=== PATIENT | male | born 1950 | race Caucasian/White ===

== ENCOUNTER 2022-12-07 10:40 | Outpatient (RCR) | payer MEDICARE, SELFPAY ==
--- NOTE | 2022-12-07 17:33 | PT.OPEX ---
PT [place] Outpatient Eval PT [facility] Outpatient Eval Start: 12/07/22 11:53 Freq: Status: Active Protocol: Document 12/07/22 16:53 ANYA (Rec: 12/07/22 17:27 ANYA [id number]) E-signed By Deirdre Escobedo DPT Physical Therapy Outpatient Evaluation Insurance Information Recert Due Date 03/07/23 Insurance Name Medicare B,are Medical Diagnosis L hip OA L BELEN 12/15/22 Treating Diagnosis L hip pain, impaired L hip ROM /mobility, core/hip/glut/LE weakness, limping/antalgic gait, limited tolerance for extended standing/walking, difficulty with stairs Subjective Subjective Patient reports chronic L hip pain progressively getting worse and leading up to L BELEN 12/15/22. He reports using a SPC for amb up until about 1 1 /2 months ago when he needed to start using a 4ww due to increased L hip pain. L hip pain rated 8-9/10 with movement/activity/walking. Reports he is using pain meds more often the last month, taking tylenol regularly. Sleep is interrupted. States he had lumbar spinal fusion in Jun 2022. Patient reports spouse will be able to assist him at home after surgery. He has SPC, FWW, and 4ww to use after surgery as needed. Standing/walking activities have been limited by pain. He is doing step to pattern for stair negotiation. Patient had R/L TKAs 5+ years ago. Date of Last Physician Visit 11/03/22 Date of Surgery (If applicable) 12/15/22 Current Work Status Retired Precautions Treatment Precautions/Contraindications hx R/L TKAs, lumbar spinal fusion Jun 2022 Assessment Assessment/Impression Patient is a 72 year old male with L hip pain, impaired L hip ROM/mobility, core/hip/ glut/LE weakness, limping/ antalgic gait, limited tolerance for extended standing/walking, difficulty with stairs. Pain rated 8-9/ 10. Patient seen in PT today for pre-op session to provide education/information on upcoming BELEN surgery, safety information/HO, equipment instruction including use of FWW/4ww, and instruction in BELEN exercises. Handouts issued for exercises, patient to perform them leading up to surgery. Reviewed PT/OT plan during hospital stay and patient is scheduled for OP PT post op. Patient would benefit from skilled PT for pain/sx management, improved hip ROM, improved hip/LE mobility/strength, improved gait, balance/proprioception training, and establishment of HEP. Plan of Care Rehabilitation Potential Good Physical Therapy Goals 1. Patient will be educated in BELEN pre/post-op safety, mobility, and exercises with HOs provided within one visit with patient returning to PT for post op treatment after L BELEN surgery on 12/15/21. PT goals will be updated to BELEN rehab goals when patient returns post op. Coordination/Communication With Referral Source Treatment Plan/Direct Interventions Gait Training,Manual Therapy, Therapeutic Exercises Frequency/Duration 1x/week Patient Will Be Discharged From Therapy Completion of LTG(s),Skills Plateau,Independent w/HEP, Independently Progressing Evaluation Billing Untimed Code Treatment Minutes 30 Complexity Moderate Certification Information Initial Certification Date 12/07/22 Ending Certification Date 03/07/23 Provider Signature Shows Agreement With POC & Medical Necessity Physician Signature & Date Requested Please Sign/Date Here Physician Comment/Change : Physician NPI Number #
== END 2023-04-06 23:59 | disposition home or self-care (01) ==
PROVIDERS: PCP Orthopaedic Surgery; Visit Provider Orthopaedic Surgery
DX: M16.12 Unilateral primary osteoarthritis, left hip (principal); Z96.642 Presence of left artificial hip joint; R26.89 Other abnormalities of gait and mobility; Z51.89 Encounter for other specified aftercare; M25.552 Pain in left hip; M62.81 Muscle weakness (generalized)
CPT/HCPCS: 97162

== ENCOUNTER 2022-12-13 10:24 | Outpatient (CLI) | payer MEDICARE, SELFPAY | END 2022-12-13 10:25 | disposition home or self-care (01) | PROVIDERS: PCP Family Medicine; Visit Provider Orthopaedic Surgery | DX: Z01.818 Encounter for other preprocedural examination (principal) | CPT/HCPCS: 36415; 86850; 86900; 86901 ==

== ENCOUNTER 2022-12-15 07:43 | Day surgery (SDC) | payer MEDICARE, SELFPAY ==
[2022-12-15] VITALS (35 sets, daily range): BP systolic 86–150; BP diastolic 19–79; PULSE 79–97; RESP 11–20; TEMP 35.6–36.5; O2SAT 92–100; BMI 40.5
[2022-12-15] MEDS: CELECOXIB 200 MG CAPSULE PO (08:01)
[2022-12-15] MEDS: ACETAMINOPHEN 500 MG TABLET 1000 MG PO ×3 (08:01→22:01)
[2022-12-15] MEDS: OXYCODONE (CR) 10 MG TAB.ER.12H PO (08:02)
[2022-12-15] MEDS: LACTATED RINGERS 1000 ML 1,000 ML 100 ML IV ×2 (08:30→10:36)
[2022-12-15] MEDS: SODIUM CHLORIDE 0.9 % (FLUSH) 10 ML SYRINGE IVF (08:30)
--- NOTE | 2022-12-15 08:41 | SUR.PREOP ---
TIME?OUT:?0842 PT/RN/MDA?VERIFICATION?OF?SURGICAL?SITE,?PROCEDURE,?AND?CONSENT OBTAINED?PRIOR?TO?INVASIVE?PROCEDURE.
[2022-12-15] MEDS: fentaNYL 100 MCG/2 ML inj IVP (08:42)
[2022-12-15] MEDS: MIDAZOLAM HCL 1 MG/ML inj IVP (08:42)
[2022-12-15] MEDS: CEFAZOLIN 2 GM INJ IVP (09:15)
--- NOTE | 2022-12-15 09:19 | P.NB_ITS ---
Nerve Block Nerve Block Time Seen by Provider: 08:47 Date Seen: 12/15/22 Type of block requested by surgeon for post-operative analgesia: MAT/LFCN Side: left Time out performed: Yes Verification of patient name: Yes Verification of date of : Yes Site marking: site marked Name of person performing procedure: Kane Continuous monitoring Was continuous monitoring of O2 sat, B/P, awake overnight monitor, recorded every 15 minutes?: Yes Procedure Checklist: sterile prep, needles and gloves Ultrasound guided. Images saved: Yes Medications given in 5ml increments after negative aspiration: Ropivicaine %: 0.5 mL: 30 Needle gauge: 20 Decadron (mg): 10 Precedex (mcg): 25 Patient tolerated procedure well: Yes Additional comments: Needle noted below psoas tendon needle noted adjacent to LFCN Block Charges Block Charge (with Pro Fee): Other Periph Nerve Block Use of Ultrasound Machine for Block: Yes- US Guidance/pain block
--- NOTE | 2022-12-15 09:19 | W.ANESCHARGE ---
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
[2022-12-15] MEDS: TRANEXAMIC ACID 100 MG/ML INJ 1000 MG IV (09:20)
--- NOTE | 2022-12-15 09:30 | CRLHL7_ITS ---
For Patients: As a result of the Cures Act, medical imaging exams and procedure reports are released immediately into your electronic medical record. You may view this report before your referring provider. If you have questions, please contact your health care provider. Indication: Hip replacement surgery Technique: AP hip fluoroscopic images. Fluoroscopy time 59.7 seconds. Findings/Impression: Hardware from a left total hip arthroplasty is in satisfactory position. Dictated by Jaziel Figueroa MD @ 12/15/2022 12:25:03 PM (Electronically Signed)
--- NOTE | 2022-12-15 10:53 | CRLHL7_ITS ---
For Patients: As a result of the Cures Act, medical imaging exams and procedure reports are released immediately into your electronic medical record. You may view this report before your referring provider. If you have questions, please contact your health care provider. Indication: Postop Technique: AP hip centered pelvis and lateral view left hip Findings/Impression: Hardware from a left total hip arthroplasty is in satisfactory position. Bone alignment is normal. No sign of acute fracture. Postop changes are within normal limits. Dictated by Jaziel Figueroa MD @ 12/15/2022 12:23:08 PM (Electronically Signed)
--- NOTE | 2022-12-15 10:55 | P.ORPRC_ITS ---
Procedure Note Date of procedure: 12/15/22 Procedure: PREOPERATIVE DIAGNOSIS: Left hip osteoarthritis POSTOPERATIVE DIAGNOSIS: Left hip osteoarthritis NAME OF OPERATION: Left total hip arthroplasty SURGEON: Nadir Islas MD [employer] INSURANCE: Angela Correia PA-C, [employer] IMPLANTS: 1. [employer] [place] # 56 sector ingrowth cup 2. 36 x 56 +4 neutral polyethylene 3. Actis # 9 high offset collared ingrowth stem 4. 36 + 5 ceramic femoral head ANESTHESIA: General ESTIMATED BLOOD LOSS: 750 cc COMPLICATIONS: None SPECIMENS: None DRAINS: None PREOPERATIVE ANTIBIOTICS: Ancef 3 grams INDICATIONS: The patient is a 72-year-old with a longstanding history of severe, unrelenting left hip pain secondary to end-stage left hip osteoarthritis. Despite appropriate nonoperative management, including activity modification, use of an assist device, anti-inflammatories, [id number] pain medication, physical therapy and injections, they continue to have pain and disability. Operative intervention was offered. The risks, benefits and expected outcomes were discussed in detail. These included but were not limited to: Infection, bleeding, injury to blood vessel or nerve, venous thromboembolism. All questions were answered to their satisfaction. Use of an human resources assistant manager was necessary throughout the case for patient positioning and safety, soft tissue retraction and closure. PROCEDURE: The patient was placed supine on the [place] table. General anesthesia was administered. The human resources assistant manager made sure the patient was properly positioned. The left hip was prepped and draped in the usual sterile fashion. The image intensifier was brought in for a perfect AP pelvis and a perfect double tear drop AP view of each hip which were used for intraoperative templating with our fluoroscopic guide. An oblique incision was made 3 cm distal and 3 cm lateral to the anterior superior iliac spine. The human resources assistant manager retracted the soft tissues to protect them. Subcutaneous dissection was taken with electrocautery to the superficial fascia. The fascia was divided in line with the incision. Blunt dissection was carried medially to the tensor fascia lennox and sartorius interval. Deep dissection was carried with electrocautery. The circumflex vessels were cauterized and divided. The capsule was exposed and then divided in a T- fashion, tagged with #1 Ethibond sutures. Retractors were placed in the joint, held by the human resources assistant manager. The corkscrew was placed in the femoral head. The neck cut was made in the subcapital region. We made a second neck cut more distal. The napkin ring of bone was removed. The femoral head was removed intact. Acetabular retractors were placed, held by the human resources assistant manager. The labrum was sharply debrided. The capsule was released. The 43 mm reamer was used to the true medial wall. We then enlarged in 2 mm increments using the image intensifier for our reamer placement. We impacted the cup which had excellent purchase. We placed the hole eliminator and the polyethylene. Attention was then turned to the proximal femur. The limb was placed in 140 degrees of external rotation, maximum extension and adduction. A significant amount of time was spent releasing the capsule to allow us to deliver the femur into the wound and complete the femoral side safely. Retractors were held by the human resources assistant manager throughout the femoral preparation. The snuff box finisher and canal finder were used. Broaches were used to a stable size. The calcar reamer was used. Trial components were placed. The hip was reduced and was found to be stable with appropriate soft tissue tension. Length and offset had been nicely restored using the image intensifier and our fluoroscopic guide. Trial components were removed. The stem was impacted. We placed the femoral head. Again, the hip was reduced and was found to be stable with appropriate soft tissue tension. Length and offset had been nicely restored. The human resources assistant manager did a three minute dilute Betadine solution soak. The human resources assistant manager irrigated the wound with 3 liters of normal saline via pulse lavage. The ass istant repaired the anterior capsule with a #1 Vicryl and our previously placed Ethibond sutures. The human resources assistant manager closed the fascia over the tensor fascia lennox with a #1 PDO Stratafix, subcutaneous tissues with 2-0 Vicryl, skin with a running 3-0 Stratafix and glue. A dry dressing was applied by the human resources assistant manager. Sponge and needle counts were correct x 2. The patient tolerated the procedure well; there were no apparent complications. They were awakened and extubated in the operating room, sent to the Post-Anesthesia Care Unit in satisfactory condition. PLAN: 1. The patient will be mobilized with physical therapy, weight-bearing as tolerates 2. Given his history of a calf DVT after spinal fusion, Xarelto x 35 days will be used for DVT prophylaxis 3. The patient will be discharged once medically appropriate
[2022-12-15] MEDS: fentaNYL 100 MCG/2 ML inj 50 MCG IVP ×2 (11:52→12:08)
[2022-12-15] MEDS: HYDROmorphone 0.5 mg/0.5 ml inj IVP ×4 (12:20→15:18)
[2022-12-15] MEDS: LACTATED RINGERS 1000 ML 1,000 ML 35 ML IV (12:39)
[2022-12-15] MEDS: hydrOXYzine pamoate 25 MG CAPSULE PO (13:01)
--- NOTE | 2022-12-15 13:26 | SUR.PHASEI ---
patient met discharge criteria per anesthesia
--- NOTE | 2022-12-15 14:48 | PC.NURSE ---
End of Shift: Pt arrived to floor at 1320 post LTH. Pt reports pain at 7/10. Therapy worked with pt. LR IV ordered at 75ml/hr. No void or BM during shift. Pt ambulating with therapy SBA, walker, and gaitbelt. at bedside.
--- NOTE | 2022-12-15 14:58 | P.ANES_ITS ---
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
--- NOTE | 2022-12-15 15:42 | P.IMCN_ITS ---
Date of Consult Patient: Alexx Patient Consult date: 12/15/22 Requesting Physician: Orthopedics Primary Care Provider: Homer Champion MD Consult Narrative Reason for consult: recent DVT, HTN, DM2 Narrative: Jozef Saleem is a 72 year old male who has been on Xarelto for DVT for the past three months underwent an elective left total hip arthroplasty today by Dr. Islas. Trupti stopped Xarelto few days before surgery and had discussed the plan with his primary care provider prior to admission. They decided that he should restart Xarelto at a therapeutic dose after surgery and continue it for 1 month. He tells me that he has enough pills at home to do this. Also he has been on oral opioids as an outpatient for hip pain past few months. He was already asking for refill of his oxycodone to go home with because use concerned he will have quite a bit of pain. He tells me that his pain is already ramping up after surgery and he feels like he could use something for pain right now. His , Emeli, was in the room with him. Review of Systems Status of ROS: Reports: 10 or more systems reviewed and unremarkable except as noted in History and below [facility] Medical History (Updated 12/15/22 @ 16:12 by Ame Posada MD) Opioid use ?F11.90 - Opioid use, unspecified, uncomplicated (ICD-10) DVT (deep venous thrombosis) ?I82.409 - Acute embolism and thrombosis of unspecified deep veins of unspecified lower extremity (ICD-10) Lumbar spinal stenosis ?M48.061 - Spinal stenosis, lumbar region without neurogenic claudication (ICD-10) Depression ?F32.A - Depression, unspecified (ICD-10) Morbid obesity with BMI of 40.0-44.9, adult ?E66.01 - Morbid (severe) obesity due to excess calories (ICD-10) ?Z68.41 - Body mass index [BMI] 40.0-44.9, adult (ICD-10) Hypermetropia ?H52.00 - Hypermetropia, unspecified eye (ICD-10) Prostate cancer ?C61 - Malignant neoplasm of prostate (ICD-10) Type 2 diabetes mellitus without complications ?E11.9 - Type 2 diabetes mellitus without complications (ICD-10) GERD (gastroesophageal reflux disease) ?K21.9 - Gastro-esophageal reflux disease without esophagitis (ICD-10) Left rotator cuff tear ?M75.102 - Unspecified rotator cuff tear or rupture of left shoulder, not specified as traumatic (ICD-10) Left hip pain ?M25.552 - Pain in left hip (ICD-10) Anxiety ?F41.9 - Anxiety disorder, unspecified (ICD-10) Hypertension ?I10 - Essential (primary) hypertension (ICD-10) Surgical History (Updated 12/15/22 @ 16:12 by Ame Posada MD) S/P total hip arthroplasty (12/15/22) ?Z96.649 - Presence of unspecified artificial hip joint (ICD-10) History of refractive surgery ?Z98.890 - Other specified postprocedural states (ICD-10) History of prostate surgery ?Z98.890 - Other specified postprocedural states (ICD-10) History of nasal surgery ?Z98.890 - Other specified postprocedural states (ICD-10) H/O knee surgery ?Z98.890 - Other specified postprocedural states (ICD-10) H/O hernia repair ?Z98.890 - Other specified postprocedural states (ICD-10) ?Z87.19 - Personal history of other diseases of the digestive system (ICD-10) H/O esophagogastroduodenoscopy ?Z98.890 - Other specified postprocedural states (ICD-10) Hx of colonoscopy ?Z98.890 - Other specified postprocedural states (ICD-10) S/P cervical spinal fusion ?Z98.1 - Arthrodesis status (ICD-10) S/P rotator cuff repair ?Z98.890 - Other specified postprocedural states (ICD-10) Status post lumbar spinal fusion ?Z98.1 - Arthrodesis status (ICD-10) History of arthroplasty of left knee (08/14/14) ?Z96.652 - Presence of left artificial knee joint (ICD-10) S/P total knee arthroplasty (06/07/15) ?Z96.659 - Presence of unspecified artificial knee joint (ICD-10) Family History (Updated 12/15/22 @ 14:57 by Ame Posada MD) Father Pacemaker COPD (chronic obstructive pulmonary disease) Prostate cancer High blood pressure Mother Myocardial infarction Blood clot in vein Cardiovascular disease High cholesterol High blood pressure Brother Prostate cancer Aunt Multiple sclerosis Social History Smoking Status: Never smoker Do you use any of these nicotine containing products: None How often do you have a drink containing alcohol: never AUDIT-C Alcohol total score: 0 Non-prescribed substance use: denies use Caffeine: Yes (coffee, 1-2 cups/day) service: Yes Meds Home Medications and Allergies Home Medications Medication Instructions Recorded Confirmed Type acetaminophen 500 mg tablet 500 mg PO Q6H PRN 11/02/22 12/15/22 History (Tylenol Extra Strength) escitalopram oxalate 20 mg tablet 20 mg PO QAM 11/02/22 12/15/22 History losartan 50 mg-hydrochlorothiazide 1 tab PO DAILY 11/02/22 12/15/22 History 12.5 mg tablet morphine 15 mg tablet,extended 15 mg PO BID 11/02/22 12/15/22 History release oxycodone 5 mg tablet 5 mg PO TID 11/02/22 12/15/22 History rivaroxaban 20 mg tablet (Xarelto) 20 mg PO QPM 11/02/22 12/15/22 History Allergies Allergy/AdvReac Type Severity Reaction Status Date / Time clarithromycin Allergy Severe hives, Verified 12/15/22 07:57 chest tightness Penicillins Allergy Intermediate hives, Verified 12/15/22 07:57 chest tightness Exam Narrative: Exam Narrative: General: No acute distress. Awake alert oriented x3. HEENT: Normocephalic atraumatic, pupils equally round and reactive to light and accommodation. Oropharynx clear. Mucous membranes are moist. No cervical lymphadenopathy, thyromegaly or carotid bruits. No JVD. Cardiovascular: Regular rate and rhythm. No murmurs, gallops, or rubs. Chest: No increased work of breathing. Clear to auscultation bilaterally. No crackles or wheezes. Abdomen: Bowel sounds present. Soft, nondistended, nontender. No hepatosplenomegaly or masses. Extremities: Left hip bandage is anterior, clean, dry, and intact. No edema, no cyanosis or clubbing. Skin: No jaundice, no pallor, no rashes. Const: Vital Signs, click to edit/add: Vital Signs - 24 hr 12/15/22 08:15 12/15/22 08:42 12/15/22 08:45 Temperature 97.7 F Pulse Rate 87 84 89 Pulse Rate [Left P ulse Oximeter] Respiratory Rate 16 16 16 Blood Pressure 124/79 130/72 124/75 Blood Pressure [Ri ght Arm] Pulse Oximetry 95 93 92 Oxygen Delivery Me thod Room Air Nasal Cannula Nasal Cannula Oxygen Flow Rate 3 3 12/15/22 11:34 12/15/22 11:40 12/15/22 11:45 Temperature 97.4 F L 97.4 F L 97.4 F L Pulse Rate 79 84 84 Pulse Rate [Left P ulse Oximeter] Respiratory Rate 15 16 20 Blood Pressure 113/59 L 103/57 L 91/55 L Blood Pressure [Ri ght Arm] Pulse Oximetry 95 96 95 Oxygen Delivery Me thod OxyMask OxyMask OxyMask Oxygen Flow Rate 6 6 6 12/15/22 11:50 12/15/22 11:55 12/15/22 12:00 Temperature 97.4 F L 97.4 F L 97.4 F L Pulse Rate 83 84 82 Pulse Rate [Left P ulse Oximeter] Respiratory Rate 14 13 12 Blood Pressure 112/48 L 102/55 L 108/45 L Blood Pressure [Ri ght Arm] Pulse Oximetry 95 98 98 Oxygen Delivery Me thod OxyMask OxyMask OxyMask Oxygen Flow Rate 6 6 6 12/15/22 12:05 12/15/22 12:10 12/15/22 12:15 Temperature 97.4 F L 97.4 F L 97.4 F L Pulse Rate 81 84 85 Pulse Rate [Left P ulse Oximeter] Respiratory Rate 12 12 15 Blood Pressure 106/66 115/69 115/62 Blood Pressure [Ri ght Arm] Pulse Oximetry 97 95 95 Oxygen Delivery Me thod OxyMask OxyMask Room Air Oxygen Flow Rate 6 6 0 12/15/22 12:20 12/15/22 12:25 12/15/22 12:30 Temperature 97.4 F L 97.4 F L 97.4 F L Pulse Rate 84 81 81 Pulse Rate [Left P ulse Oximeter] Respiratory Rate 14 11 L 15 Blood Pressure 122/58 L 95/60 101/62 Blood Pressure [Ri ght Arm] Pulse Oximetry 93 95 97 Oxygen Delivery Me thod Room Air Room Air Room Air Oxygen Flow Rate 0 0 0 12/15/22 12:35 12/15/22 12:40 12/15/22 12:45 Temperature 97.4 F L 97.4 F L 97.4 F L Pulse Rate 81 82 83 Pulse Rate [Left P ulse Oximeter] Respiratory Rate 12 16 12 Blood Pressure 112/59 L 102/59 L 117/63 Blood Pressure [Ri ght Arm] Pulse Oximetry 94 98 96 Oxygen Delivery Me thod Room Air Room Air Room Air Oxygen Flow Rate 0 0 0 12/15/22 12:50 12/15/22 13:00 12/15/22 13:05 Temperature 97.4 F L 97.4 F L 97 F L Pulse Rate 80 80 79 Pulse Rate [Left P ulse Oximeter] Respiratory Rate 13 13 12 Blood Pressure 86/50 L 91/61 106/56 L Blood Pressure [Ri ght Arm] Pulse Oximetry 97 100 94 Oxygen Delivery Me thod Room Air Room Air Room Air Oxygen Flow Rate 0 0 0 12/15/22 13:10 12/15/22 13:10 12/15/22 13:15 Temperature 97 F L 96.1 F L 97 F L Pulse Rate 80 82 Pulse Rate [Left P ulse Oximeter] 83 Respiratory Rate 20 16 18 Blood Pressure 97/69 110/72 Blood Pressure [Ri ght Arm] 110/72 Pulse Oximetry 98 96 96 Oxygen Delivery Me thod Room Air Room Air Room Air Oxygen Flow Rate 0 0 0 12/15/22 13:29 12/15/22 13:35 12/15/22 13:49 Temperature 96.1 F L 96.1 F L 96.1 F L Pulse Rate 83 Pulse Rate [Left P ulse Oximeter] 83 80 Respiratory Rate 16 16 16 Blood Pressure Blood Pressure [Ri ght Arm] 110/72 109/68 110/72 Pulse Oximetry 96 94 Oxygen Delivery Me thod Room Air Room Air Room Air Oxygen Flow Rate 0 12/15/22 14:05 12/15/22 14:20 12/15/22 14:50 Temperature 96.5 F L 96.5 F L 97 F L Pulse Rate Pulse Rate [Left P ulse Oximeter] 83 87 94 Respiratory Rate 18 20 16 Blood Pressure Blood Pressure [Ri ght Arm] 118/69 118/19 L 150/69 H Pulse Oximetry 94 94 96 Oxygen Delivery Me thod Room Air Room Air Room Air Oxygen Flow Rate 0 0 0 Labs Labs: Ordering Physician: Nadir Islas M.D. Date of Service: 12/15/22 Procedure(s): XR hip LT 1V Accession Number(s): [id number] cc: Nadir Islas M.D.; Homer Champion M.D.~ For Patients: As a result of the Cures Act, medical imaging exams and procedure reports are released immediately into your electronic medical record. You may view this report before your referring provider. If you have questions, please contact your health care provider. Indication: Hip replacement surgery Technique: AP hip fluoroscopic images. Fluoroscopy time 59.7 seconds. Findings/Impression: Hardware from a left total hip arthroplasty is in satisfactory position. Dictated by Jaziel Figueroa MD @ 12/15/2022 12:25:03 PM (Electronically Signed) Ordering Physician: Nadir Islas M.D. Date of Service: 12/15/22 Procedure(s): XR hip LT post op Accession Number(s): [id number] cc: Nadir Islas M.D.; Homer Champion M.D.~ For Patients: As a result of the Cures Act, medical imaging exams and procedure reports are released immediately into your electronic medical record. You may view this report before your referring provider. If you have questions, please contact your health care provider. Indication: Postop Technique: AP hip centered pelvis and lateral view left hip Findings/Impression: Hardware from a left total hip arthroplasty is in satisfactory position. Bone alignment is normal. No sign of acute fracture. Postop changes are within normal limits. Dictated by Jaziel Figueroa MD @ 12/15/2022 12:23:08 PM (Electronically Signed) Assessment and Plan Assessment and plan (1) S/P total hip arthroplasty: Problem comment: - 12/15/22 Dr. Janel rodriguez - routine post op cares - post op VTE prophylaxis with therapeutic doses of Xarelto due to recent post op DVT - I discussed this with ranjan Miller Status: Acute (2) Osteoarthritis of left hip: Status: Chronic (3) DVT (deep venous thrombosis): Problem comment: - 08/12/22 RLE DVT after back surgery on 07/21/22. He has been on Xarelto for three months and, per discussion with his PCP, he plans to continue this post op for another month, then stop. Status: Chronic (4) Opioid use: Problem comment: - Has been on opioids as an outpatient for the past few months due to hip pain. Likely has some opioid tolerance. Will follow along with you to help adjust pain medication. Status: Chronic (5) Hypertension: Problem comment: Hold home antihypertensive tomorrow morning. Restart if hypertensive or upon discharge. Status: Chronic (6) Anxiety: Status: Chronic Assessment and Plan: Continue escitalopram (7) GERD (gastroesophageal reflux disease): Problem comment: - with h/o esophagitis - quiescent, not currently on medication Status: Chronic (8) Type 2 diabetes mellitus without complications: Problem comment: - diet controlled - Continue diabetic diet Status: Chronic (9) Morbid obesity with BMI of 40.0-44.9, adult: Status: Chronic
[2022-12-15] MEDS: OXYCODONE 5 MG TABLET PO ×2 (16:18→22:02)
[2022-12-15] MEDS: LACTATED RINGERS 1000 ML 1,000 ML 75 ML IV (19:03)
[2022-12-15] MEDS: SENNOSIDES 1 TAB TABLET 2 TAB PO (22:01)
[2022-12-16 03:00] VITALS: BP 130/72; RESP 18; TEMP 36.7; O2SAT 93
[2022-12-16] MEDS: OXYCODONE 5 MG TABLET PO ×3 (03:29→09:13)
[2022-12-16] MEDS: ACETAMINOPHEN 500 MG TABLET 1000 MG PO ×2 (03:31→09:14)
--- NOTE | 2022-12-16 06:09 | PC.NURSE ---
[phone] Pt pleasant and cooperative, slept well during night. Up to br with walker, GB, SBA, tolerating activity very well. Dressing to L hip C/D/I, ice to site during shift. Prn pain med given with scheduled tylenol, this was affective in manageing pain. denies N/V, chest pain or headache.
[2022-12-16 06:42] LABS: Basophils Percent Auto 0.1 % (0.0-3.0); Hematocrit 33.6 % (37.0-53.0); Hemoglobin* 11.1 gm/dL (13.5-17.5); Immature Granulocytes Pct Auto 0.3 %; Lymphocytes Percent Auto 7.4 % (20-44); Mean Corpuscular HGB Conc 33 gm/dL (32-36); Mean Corpuscular Hemoglobin 31 pg (26-34); Mean Corpuscular Volume 92 fL (80-100); Monocytes Percent Auto 9.4 % (0.0-11.0); Neutrophils Percent Auto 82.8 % (42.0-72.0); Platelet Count* 194 K/uL (140-440); RDW Coefficient of Variation % 13.1 % (11.5-15.5); Red Blood Count 3.64 m/uL (4.30-5.90); White Blood Count* 12.83 K/uL (4.50-11.00)
[2022-12-16 06:47] LABS: Slide Review Reflex No
[2022-12-16 06:57] LABS: Potassium* 4.2 mmol/L (3.6-5.1); Sodium* 134 mmol/L (135-149)
[2022-12-16 07:00] VITALS: BP 124/61; PULSE 94; RESP 18; TEMP 36.3; O2SAT 94
[2022-12-16 07:00] LABS: Blood Urea Nitrogen* 24 mg/dL (7-30); Creatinine* 0.8 mg/dL (0.5-1.5); Estimated Glomerular Filt Rate 93 ml/min
--- NOTE | 2022-12-16 08:42 | PM.ORPN ---
Subjective Subjective Time Seen by Provider: 07:30 Date Seen: 12/16/22 Principal diagnosis: status post left hip replacement Interval history: Jozef is comfortable this morning. He will discharge to home today with his . Jozef states that he has a month supply of his Xarelto at home. We called his to see if she was home, however she was already on her way. She is unsure how many Xarelto they have at home, however raul feels he has a month supply. He also states he has a full bottle of Tylenol at home and does not need a prescription. He takes minimal oxycodone at home. He does not take morphine. He was taking oxycodone for his hip. He also has history of back surgery. His back has not flared with his current hip replacement. Ortho Exam Narrative Exam Narrative: Alert and oriented x3. Patient is in no acute distress. Converses without labored breathing. Hearing is grossly intact. Ambulates with a Walker. Examination of the left hip shows The dressing is intact. No erythema or warmth or sign of infection. Mild edema. Good quad strength. CMS intact left lower extremity. Bilateral calves are soft and nontender. Const Vital Signs, click to edit/add: Vital Signs - 24 hr 12/15/22 08:45 12/15/22 11:34 12/15/22 11:40 Temperature 97.4 F L 97.4 F L Pulse Rate 89 79 84 Pulse Rate [Left Pulse Oximeter] Respiratory Rate 16 15 16 Blood Pressure 124/75 113/59 L 103/57 L Blood Pressure [Right Arm] Pulse Oximetry 92 95 96 Oxygen Delivery Method Nasal Cannula OxyMask OxyMask Oxygen Flow Rate 3 6 6 12/15/22 11:45 12/15/22 11:50 12/15/22 11:55 Temperature 97.4 F L 97.4 F L 97.4 F L Pulse Rate 84 83 84 Pulse Rate [Left Pulse Oximeter] Respiratory Rate 20 14 13 Blood Pressure 91/55 L 112/48 L 102/55 L Blood Pressure [Right Arm] Pulse Oximetry 95 95 98 Oxygen Delivery Method OxyMask OxyMask OxyMask Oxygen Flow Rate 6 6 6 12/15/22 12:00 12/15/22 12:05 12/15/22 12:10 Temperature 97.4 F L 97.4 F L 97.4 F L Pulse Rate 82 81 84 Pulse Rate [Left Pulse Oximeter] Respiratory Rate 12 12 12 Blood Pressure 108/45 L 106/66 115/69 Blood Pressure [Right Arm] Pulse Oximetry 98 97 95 Oxygen Delivery Method OxyMask OxyMask OxyMask Oxygen Flow Rate 6 6 6 12/15/22 12:15 12/15/22 12:20 12/15/22 12:25 Temperature 97.4 F L 97.4 F L 97.4 F L Pulse Rate 85 84 81 Pulse Rate [Left Pulse Oximeter] Respiratory Rate 15 14 11 L Blood Pressure 115/62 122/58 L 95/60 Blood Pressure [Right Arm] Pulse Oximetry 95 93 95 Oxygen Delivery Method Room Air Room Air Room Air Oxygen Flow Rate 0 0 0 12/15/22 12:30 12/15/22 12:35 12/15/22 12:40 Temperature 97.4 F L 97.4 F L 97.4 F L Pulse Rate 81 81 82 Pulse Rate [Left Pulse Oximeter] Respiratory Rate 15 12 16 Blood Pressure 101/62 112/59 L 102/59 L Blood Pressure [Right Arm] Pulse Oximetry 97 94 98 Oxygen Delivery Method Room Air Room Air Room Air Oxygen Flow Rate 0 0 0 12/15/22 12:45 12/15/22 12:50 12/15/22 13:00 Temperature 97.4 F L 97.4 F L 97.4 F L Pulse Rate 83 80 80 Pulse Rate [Left Pulse Oximeter] Respiratory Rate 12 13 13 Blood Pressure 117/63 86/50 L 91/61 Blood Pressure [Right Arm] Pulse Oximetry 96 97 100 Oxygen Delivery Method Room Air Room Air Room Air Oxygen Flow Rate 0 0 0 12/15/22 13:05 12/15/22 13:10 12/15/22 13:10 Temperature 97 F L 97 F L 96.1 F L Pulse Rate 79 80 Pulse Rate [Left Pulse Oximeter] 83 Respiratory Rate 12 20 16 Blood Pressure 106/56 L 97/69 Blood Pressure [Right Arm] 110/72 Pulse Oximetry 94 98 96 Oxygen Delivery Method Room Air Room Air Room Air Oxygen Flow Rate 0 0 0 12/15/22 13:15 12/15/22 13:29 12/15/22 13:35 Temperature 97 F L 96.1 F L 96.1 F L Pulse Rate 82 Pulse Rate [Left Pulse Oximeter] 83 80 Respiratory Rate 18 16 16 Blood Pressure 110/72 Blood Pressure [Right Arm] 110/72 109/68 Pulse Oximetry 96 96 94 Oxygen Delivery Method Room Air Room Air Room Air Oxygen Flow Rate 0 0 12/15/22 13:49 12/15/22 14:05 12/15/22 14:20 Temperature 96.1 F L 96.5 F L 96.5 F L Pulse Rate 83 Pulse Rate [Left Pulse Oximeter] 83 87 Respiratory Rate 16 18 20 Blood Pressure Blood Pressure [Right Arm] 110/72 118/69 118/19 L Pulse Oximetry 94 94 Oxygen Delivery Method Room Air Room Air Room Air Oxygen Flow Rate 0 0 12/15/22 14:50 12/15/22 15:20 12/15/22 16:20 Temperature 97 F L 97.3 F L 97.6 F Pulse Rate Pulse Rate [Left Pulse Oximeter] 94 90 94 Respiratory Rate 16 18 16 Blood Pressure Blood Pressure [Right Arm] 150/69 H 126/71 111/69 Pulse Oximetry 96 97 96 Oxygen Delivery Method Room Air Room Air Room Air Oxygen Flow Rate 0 0 0 12/15/22 17:20 12/15/22 18:20 12/15/22 19:00 Temperature 97.6 F 97.2 F L 97.5 F L Pulse Rate Pulse Rate [Left Pulse Oximeter] 92 96 97 Respiratory Rate 18 16 18 Blood Pressure Blood Pressure [Right Arm] 110/68 123/71 105/72 Pulse Oximetry 95 94 97 Oxygen Delivery Method Room Air Room Air Room Air Oxygen Flow Rate 0 0 0 12/15/22 22:15 12/16/22 03:00 Temperature 97.5 F L 98.0 F Pulse Rate Pulse Rate [Left Pulse Oximeter] 97 Respiratory Rate 18 18 Blood Pressure Blood Pressure [Right Arm] 105/72 130/72 Pulse Oximetry 97 93 Oxygen Delivery Method Room Air Room Air Oxygen Flow Rate 0 0 Assessment and Plan Assessment and plan (1) S/P total hip arthroplasty: Problem details: - 12/15/22 leftDr. Islas - routine post op cares - post op VTE prophylaxis with therapeutic doses of Xarelto due to recent post op DVT - I discussed this with ranjan Miller Status: Acute Assessment and Plan: Plan for discharge is today to home if they meet discharge criteria. DVT prophylaxis includes Xarelto 20mg daily for Thirty days , Jackson stockings x1 month may remove for 1 hr per day, frequent ambulation , every hour throughout the day Remove dressing 1 week. Observe wound and phone Orthopedics with any questions or concerns Use Ice on operative hip unrestricted. Return to clinic in 1 week with PA for a wound check Return to clinic in [address] Islas Minimize narcotic use. Wean off and discontinue soon as possible. Activities as tolerated. No strenuous activity. Attend outpt PT when he area gets home later today. He will count his Xarelto pills and call me if he needs extra to get him through 1 month. Senna, oxycodone are sent to his pharmacy. (2) Osteoarthritis of left hip: Status: Chronic (3) DVT (deep venous thrombosis): Problem details: - 08/12/22 RLE DVT after back surgery on 07/21/22. He has been on Xarelto for three months and, per discussion with his PCP, he plans to continue this post op for another month, then stop. Status: Chronic (4) Opioid use: Problem details: - Has been on opioids as an outpatient for the past few months due to hip pain. Likely has some opioid tolerance. Will follow along with you to help adjust pain medication. Status: Chronic (5) Hypertension: Problem details: Hold home antihypertensive tomorrow morning. Restart if hypertensive or upon discharge. Status: Chronic (6) Anxiety: Status: Chronic (7) GERD (gastroesophageal reflux disease): Problem details: - with h/o esophagitis - quiescent, not currently on medication Status: Chronic (8) Type 2 diabetes mellitus without complications: Problem details: - diet controlled - Continue diabetic diet Status: Chronic (9) Morbid obesity with BMI of 40.0-44.9, adult: Status: Chronic
[2022-12-16] MEDS: ESCITALOPRAM 10 MG TABLET 20 MG PO (09:13)
[2022-12-16] MEDS: SENNOSIDES 1 TAB TABLET 2 TAB PO (09:13)
--- NOTE | 2022-12-16 09:38 | NUTR.NU ---
RDN with nutrition screen for diabetic diet and diagnosis of type 2 diabetes mellitus, which is diet controlled. Diabetic diet education provided to patient and . Discussed basics of carbohydrate counting including sources of carbohydrates, serving sizes, and label reading. Discussed using the plate method for carbohydrate-controlled, balanced meals that include ? plate non-starchy vegetables, ? plate protein, and 3-4 servings of carbohydrates per meal (fruit, whole grains, legumes, milk, yogurt) and 1-2 per snack. Patient was also encouraged to keep timing of meals consistent and avoid skipping meals. Handouts provided to support discussion. Patient and his note being familiar with the diabetic diet and carbohydrate counting and have been following at home. RDN contact information provided and encouraged patient to call with questions. RDN to follow up as needed.
--- NOTE | 2022-12-16 11:00 | PC.NURSE ---
Patient vitally stable. PIV removed. All concerns addressed. Patient discharged to home with .
--- NOTE | 2022-12-16 11:47 | PC.SOCIAL ---
Per therapy, pt is moving around well. Pt has assistance from pt's spouse in the home. No identified social work needs.
== END 2022-12-16 11:00 | disposition home or self-care (01) ==
LOC: OR 07:43 → MEDSURG 07:47
PROVIDERS: PCP Family Medicine; Visit Provider Orthopaedic Surgery
PROC: (CPT 27130; principal; 2022-12-15 08:45)
DX: M16.12 Unilateral primary osteoarthritis, left hip (principal); G89.18 Other acute postprocedural pain; I10 Essential (primary) hypertension; E11.8 Type 2 diabetes mellitus with unspecified complications; Z86.718 Personal history of other venous thrombosis and embolism; Z79.01 Long term (current) use of anticoagulants; F11.90 Opioid use, unspecified, uncomplicated; E66.01 Morbid (severe) obesity due to excess calories; Z68.41 Body mass index [BMI] 40.0-44.9, adult; F41.9 Anxiety disorder, unspecified; K21.9 Gastro-esophageal reflux disease without esophagitis
CPT/HCPCS: 27130; 01214; 36415; 64450; 73501; 76000; 76942; 82565; 84132; 84295; 84520; 85025; 97110; 97116; 97161; 97165; 97535; 99100; A9270; C1776; J0690; J1100; J1170; J2250; J2795; J3010; J7120

== ENCOUNTER 2022-12-28 13:02 | Outpatient (CLI) | payer MEDICARE, SELFPAY ==
[2022-12-28 17:10] LABS: SARS PCR* Negative SARS-CoV-2 (Negative)
== END 2022-12-28 13:03 | disposition home or self-care (01) ==
PROVIDERS: PCP Family Medicine; Visit Provider Physician Assistant
DX: R50.9 Fever, unspecified (principal); B99.9 Unspecified infectious disease; Z96.649 Presence of unspecified artificial hip joint
CPT/HCPCS: 85025; 85651; 86140; 87635

== ENCOUNTER 2022-12-29 07:59 | Emergency (ER) | payer MEDICARE, SELFPAY ==
[2022-12-29] VITALS (36 sets, daily range): BP systolic 63–131; BP diastolic 39–67; PULSE 73–127; RESP 11–32; TEMP 37.6; O2SAT 80–100; BMI 38.7
--- NOTE | 2022-12-29 | CRLHL7_ITS ---
For Patients: As a result of the Century Cures Act, medical imaging exams and procedure reports are released immediately into your electronic medical record. You may view this report before your referring provider. If you have questions, please contact your health care provider. HISTORY: Status post intubation. COMPARISON: Portable chest from today at 0840 hours FINDINGS: A portable erect AP view of the chest was obtained at 1145 hours. During the interval, an endotracheal tube has been placed with its tip in satisfactory position 4 centimeters above the angelika. There is new mild vascular engorgement with new mild interstitial pulmonary edema, suggesting new mild congestive failure. The heart remains normal in size. The mediastinum is normal in appearance. The osseous structures are normal in appearance for the patient`s age. IMPRESSION: Satisfactory positioning of endotracheal tube. Findings suggesting new mild congestive failure. Dictated by Albino Vaca MD @ 12/29/2022 12:52:49 PM (Electronically Signed)
--- NOTE | 2022-12-29 08:21 | ED.GENADULT ---
HPI - General Adult General Time Seen by Provider: 08:21 Date Seen: 12/29/22 Chief complaint: Allergic Reaction Stated complaint: post op infection Time Seen by Provider: 12/29/22 08:01 Source: patient, EMS, RN notes reviewed and old records reviewed Mode of arrival: EMS Limitations: no limitations History of Present Illness HPI narrative: Patient is a 72-year-old male brought in by EMS from home with ongoing complaints of fever and rash. His history is complex with having a left total hip arthroplasty in November, believe December 15. He was on treatment doses of Xarelto for history of postoperative DVT. He was in clinic on December 23 for 1 week follow-up. He was using oxycodone and Tylenol. There was a little bit of a wound rash that was thought maybe to be a skin infection. He was placed on Bactrim DS 1 p.o. b.i.d. x7 days. He was back in on December 28 with fevers and chills starting Wednesday, 2 days prior to that visit. The wound actually looked better to the provider, the rash was last cold last. Was not reported to be itchy. He was complaining of being dizzy, decreased appetite, had temperatures running 100-101.3. In the clinic his temperatures were 991-100.3. They were asked to follow-up the next day in clinic with his primary care provider. He had had CBC that was normal in clinic with the orthopedist on the , negative COVID testing. Around 6:00 p.m. on the started developing a red rash across his abdomen chest back left arm and face, reported it came on like gang busters in the outside ED note. He was reported to be unable to swallow water and feeling a little short of breath. At this time he denies any oral pain or lesions. The rash has been more itchy than painful. He did get Benadryl 50 mg IV with paramedics which has helped the itching. His eyes do look a little bit injected to me and on questioning they do feel a little irritated and itchy. He is stating he is quite tired, has been up all night. He does want to eat and drink here reportedly, does state it feels dry and there is a little discomfort with swallowing but he can. If it is more with swallowing and not necessarily in his mouth. He really has not eaten since Wednesday. Was not feeling well on Wednesday. Has maybe had a little nausea, diminished appetite. He just really is not feeling well. He was given hydroxyzine 50 mg, prednisone 60 mg orally last night and then given a prescription for ongoing prednisone which he has not filled. Related Data Home Medications Medication Instructions Recorded Confirmed acetaminophen 500 mg tablet 500 mg PO Q6H PRN 11/02/22 12/28/22 (Tylenol Extra Strength) escitalopram oxalate 20 mg tablet 20 mg PO QAM 11/02/22 12/28/22 losartan 50 mg-hydrochlorothiazide 1 tab PO DAILY 11/02/22 12/28/22 12.5 mg tablet rivaroxaban 20 mg tablet (Xarelto) 20 mg PO QPM 11/02/22 12/28/22 Previous Rx's Medication Instructions Recorded sennosides 8.6 mg tablet (Senna 17.2 mg (2 x 8.6 mg) PO BID PRN 12/16/22 Lax) constipation #100 tabs rivaroxaban 20 mg tablet (Xarelto) 20 mg PO QDAY #17 tabs 12/18/22 oxycodone 5 mg tablet 2.5 - 5 mg (0.5 - 1 x 5 mg) PO 12/23/22 Q4-6H PRN Pain #30 tabs sulfamethoxazole 800 1 tab PO BID #14 tabs 12/23/22 mg-trimethoprim 160 mg tablet (Bactrim DS) Allergies Allergy/AdvReac Type Severity Reaction Status Date / Time clarithromycin Allergy Severe hives, Verified 12/28/22 12:56 chest tightness Penicillins Allergy Intermediate hives, Verified 12/28/22 12:56 chest tightness Review of Systems Status of ROS: Reports: 6 or more systems reviewed and unremarkable except as noted in History and below [facility] Medical History Opioid use ?F11.90 - Opioid use, unspecified, uncomplicated (ICD-10) DVT (deep venous thrombosis) ?I82.409 - Acute embolism and thrombosis of unspecified deep veins of unspecified lower extremity (ICD-10) Lumbar spinal stenosis ?M48.061 - Spinal stenosis, lumbar region without neurogenic claudication (ICD-10) Depression ?F32.A - Depression, unspecified (ICD-10) Morbid obesity with BMI of 40.0-44.9, adult ?E66.01 - Morbid (severe) obesity due to excess calories (ICD-10) ?Z68.41 - Body mass index [BMI] 40.0-44.9, adult (ICD-10) Hypermetropia ?H52.00 - Hypermetropia, unspecified eye (ICD-10) Prostate cancer ?C61 - Malignant neoplasm of prostate (ICD-10) Type 2 diabetes mellitus without complications ?E11.9 - Type 2 diabetes mellitus without complications (ICD-10) GERD (gastroesophageal reflux disease) ?K21.9 - Gastro-esophageal reflux disease without esophagitis (ICD-10) Left rotator cuff tear ?M75.102 - Unspecified rotator cuff tear or rupture of left shoulder, not specified as traumatic (ICD-10) Left hip pain ?M25.552 - Pain in left hip (ICD-10) Anxiety ?F41.9 - Anxiety disorder, unspecified (ICD-10) Hypertension ?I10 - Essential (primary) hypertension (ICD-10) Surgical History S/P total hip arthroplasty (12/15/22) ?Z96.649 - Presence of unspecified artificial hip joint (ICD-10) History of refractive surgery ?Z98.890 - Other specified postprocedural states (ICD-10) History of prostate surgery ?Z98.890 - Other specified postprocedural states (ICD-10) History of nasal surgery ?Z98.890 - Other specified postprocedural states (ICD-10) H/O knee surgery ?Z98.890 - Other specified postprocedural states (ICD-10) H/O hernia repair ?Z98.890 - Other specified postprocedural states (ICD-10) ?Z87.19 - Personal history of other diseases of the digestive system (ICD-10) H/O esophagogastroduodenoscopy ?Z98.890 - Other specified postprocedural states (ICD-10) Hx of colonoscopy ?Z98.890 - Other specified postprocedural states (ICD-10) S/P cervical spinal fusion ?Z98.1 - Arthrodesis status (ICD-10) S/P rotator cuff repair ?Z98.890 - Other specified postprocedural states (ICD-10) Status post lumbar spinal fusion ?Z98.1 - Arthrodesis status (ICD-10) History of arthroplasty of left knee (08/14/14) ?Z96.652 - Presence of left artificial knee joint (ICD-10) S/P total knee arthroplasty (06/07/15) ?Z96.659 - Presence of unspecified artificial knee joint (ICD-10) Family History Father Pacemaker COPD (chronic obstructive pulmonary disease) Prostate cancer High blood pressure Mother Myocardial infarction Blood clot in vein Cardiovascular disease High cholesterol High blood pressure Brother Prostate cancer Aunt Multiple sclerosis Social History Smoking Status: Never smoker Do you use any of these nicotine containing products: None How often do you have a drink containing alcohol: never AUDIT-C Alcohol total score: 0 Non-prescribed substance use: denies use Caffeine: Yes (coffee, 1-2 cups/day) service: Yes Exam Const: Vital Signs, click to edit/add: Vital Signs - 24 hr 12/29/22 08:07 12/29/22 08:15 12/29/22 08:24 Temperature 99.7 F H Pulse Rate 126 H Pulse Rate [Pulse Oximeter] 116 H 123 H Respiratory Rate 32 H 24 Blood Pressure Blood Pressure [Le ft Upper Arm] 118/65 127/64 Pulse Oximetry 94 92 Oxygen Delivery Me thod Room Air Oxygen Flow Rate 12/29/22 08:30 12/29/22 08:30 12/29/22 08:30 Temperature 99.7 F H Pulse Rate 126 H Pulse Rate [Pulse Oximeter] Respiratory Rate Blood Pressure Blood Pressure [Le ft Upper Arm] Pulse Oximetry 80 L 91 Oxygen Delivery Ut thod Oxygen Flow Rate 12/29/22 08:31 12/29/22 09:00 12/29/22 09:02 Temperature Pulse Rate 127 H 122 H Pulse Rate [Pulse Oximeter] Respiratory Rate Blood Pressure 128/63 113/65 Blood Pressure [Le ft Upper Arm] Pulse Oximetry 89 90 Oxygen Delivery Ut thod Oxygen Flow Rate 12/29/22 09:03 12/29/22 09:30 12/29/22 09:31 Temperature Pulse Rate 125 H 109 H 111 H Pulse Rate [Pulse Oximeter] Respiratory Rate 22 Blood Pressure 117/59 L Blood Pressure [Le ft Upper Arm] Pulse Oximetry 92 92 87 L Oxygen Delivery Me thod Room Air Oxygen Flow Rate 12/29/22 09:32 12/29/22 10:00 12/29/22 10:02 Temperature Pulse Rate 108 H 124 H 123 H Pulse Rate [Pulse Oximeter] Respiratory Rate Blood Pressure 115/60 Blood Pressure [Le ft Upper Arm] Pulse Oximetry 88 94 92 Oxygen Delivery Me thod Oxygen Flow Rate 12/29/22 10:30 12/29/22 10:31 12/29/22 11:00 Temperature Pulse Rate 121 H 127 H 109 H Pulse Rate [Pulse Oximeter] Respiratory Rate Blood Pressure 115/61 Blood Pressure [Le ft Upper Arm] Pulse Oximetry 90 91 93 Oxygen Delivery Me thod Oxygen Flow Rate 12/29/22 11:01 12/29/22 11:21 12/29/22 11:29 Temperature Pulse Rate 123 H Pulse Rate [Pulse Oximeter] 73 125 H Respiratory Rate Blood Pressure 110/58 L Blood Pressure [Le ft Upper Arm] 131/55 L 120/64 Pulse Oximetry 91 Oxygen Delivery Me thod Oxygen Flow Rate 12/29/22 11:30 12/29/22 11:32 12/29/22 11:33 Temperature Pulse Rate Pulse Rate [Pulse Oximeter] 117 H 120 H Respiratory Rate 28 H Blood Pressure Blood Pressure [Le ft Upper Arm] 121/61 122/58 L Pulse Oximetry 88 95 86 L Oxygen Delivery Me thod OxyMask Intubated Oxygen Flow Rate 4 12/29/22 11:42 12/29/22 11:45 12/29/22 11:48 Temperature Pulse Rate Pulse Rate [Pulse Oximeter] 118 H 124 H 114 H Respiratory Rate 22 11 L 11 L Blood Pressure Blood Pressure [Le ft Upper Arm] 111/53 L 89/47 L 82/49 L Pulse Oximetry 100 96 99 Oxygen Delivery Me thod Intubated Face Tent Intubated Oxygen Flow Rate 12/29/22 11:50 12/29/22 11:52 12/29/22 11:55 Temperature Pulse Rate Pulse Rate [Pulse Oximeter] 113 H 126 H 110 H Respiratory Rate Blood Pressure Blood Pressure [Le ft Upper Arm] 86/45 L 82/42 L 63/39 L Pulse Oximetry 97 99 98 Oxygen Delivery Me thod Intubated Intubated Oxygen Flow Rate 12/29/22 11:58 12/29/22 12:00 12/29/22 12:05 Temperature Pulse Rate Pulse Rate [Pulse Oximeter] 108 H 116 H 107 H Respiratory Rate Blood Pressure Blood Pressure [Le ft Upper Arm] 95/39 L 89/50 L 101/67 Pulse Oximetry 99 99 98 Oxygen Delivery Me thod Intubated Intubated Intubated Oxygen Flow Rate 12/29/22 12:10 12/29/22 12:15 12/29/22 12:20 Temperature Pulse Rate Pulse Rate [Pulse Oximeter] 105 H 108 H 104 H Respiratory Rate Blood Pressure Blood Pressure [Le ft Upper Arm] 111/61 118/62 124/62 Pulse Oximetry 100 98 97 Oxygen Delivery Me thod Intubated Intubated Intubated Oxygen Flow Rate 12/29/22 12:25 12/29/22 13:03 Temperature Pulse Rate Pulse Rate [Pulse Oximeter] 106 H Respiratory Rate 20 Blood Pressure Blood Pressure [Le ft Upper Arm] 128/65 Pulse Oximetry 98 Oxygen Delivery Me thod Intubated Oxygen Flow Rate Documenting provider has reviewed patient's vital signs: yes Common normals: average body habitus, oriented x3, healthy appearing, alert and well nourished General appearance: cooperative, well kempt and well developed HENMT: Common normals: normocephalic and head/scalp atraumatic Head and scalp: normocephalic and atraumatic Other: Has diffuse facial erythema, no vesicles noted. See no swelling of his lips. Tongue is not swollen. Has a small aphthous ulcer lower lip area. Mucosa is dry. Speech is normal. Eye: Common normals: PERRL and EOMs intact bilaterally Pupil: PERRL Other: No mattering of his eyes but conjunctiva are injected, looks like he has some evidence of conjunctiva irritation. Neck & C-Spine: Common normals: full ROM, no lymphadenopathy, supple, no meningeal signs, no JVD and thyroid normal Thyroid: thyroid normal Chest: Other: Has diffuse erythematous rash some areas others more macular papular. Rashes warm without vesicles, no desquamation noted. Resp: Common normals: no retractions, no use of accessory muscles and clear to auscultation bilaterally Effort & inspection: able to speak in complete sentences Auscultation: clear to auscultation bilaterally Other: Is mildly tachypneic but is able to speak in complete sentences. Cardio: Common normals: no JVD, regular rhythm, S1 normal heart sound, S2 normal heart sound, no gallops, no clicks and no murmurs Rate: tachycardic Rhythm: regular rhythm Heart sounds: S1 normal and S2 normal GI: Common normals: Normal to inspection, nondistended, normoactive bowel sounds present, soft to palpation, non-tender, no hepatosplenomegaly and no masses Palpation: soft and no hepatosplenomegaly Other: Rashes on abdomen. Extremity: Other: On his left lower extremity see more evidence of petechial changes with non blanchable skin which seems to be different than rash seen elsewhere. Right now these are not tender when I palpate or at least he is not complaining of pain when I palpate. Neuro: Common normals: oriented x3 Sensorium/orientation: alert Meningeal signs: no meningeal signs Psych: Appearance: well kempt Course Course Hospital Course: I a.m. 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 Will be asking the hospitalist for a 2nd opinion to see if they agree. Will initiate an IV, have him on pulse oximetry for monitoring, give him a L of normal saline and repeat labs. I have reviewed his labs from this past week with the orthopedic office as well as his labs from the ED department visit last night at [place] [id number]. He did have a normal urinalysis there last night and will not repeat it here today. Given his complaint of shortness of breath and is tachycardia, will look at a EKG, portable chest x-ray as well as cardiac labs with troponin. He has been on treatment doses of anticoagulant after his surgery. Will draw 2 blood cultures as well. Reevaluation(s) Time of Reevaluation #1: 10:20 Reevaluation #1: Reviewed with patient and his the concern for Persaud-Jorge Luis syndrome here, plan to transfer to regions where they have capacity to accept him. We are awaiting for bed placement. Maintenance fluid has been started. His status has not changed. Time of Reevaluation #2: 11:15 Reevaluation #2: Patient complaining of increased difficulty breathing, on questioning, mouth is increasingly sore and more difficulty swallowing, feels like breathing getting more difficult. Oxygen saturations have decrease, is requiring 2 L nasal cannula oxygen. On inspection of his oropharynx, posterior soft pallets is erythematous swollen, full of whitish ulcerated areas. Did talk to anesthesia and paged Dr. Lam. Did ask her about airway compromise with Persaud-Jorge Luis syndrome patients. She most definitely requested that we intubate him as sloughing and airway compromise significant risk in these patients. Anesthesia was contacted, they did come over and intubate the patient, conscious sedation was used. Respiratory therapy and myself were in attendance. Please see medication record. Post intubation propofol was started but patient became too hypotensive to maintain this. We switched to a ketamine drip which was tolerated better. He is 122 kilos in larger and thus did require higher amount of ketamine. Aliquots of fentanyl and Versed were also given. Did check on air but there was going to be at least a 35 minute wait and the ambulance crew was here on standby. We are going to send him via ground. Post intubation auscultation bilaterally was heard with good breath sounds. Capnography was good, pulse oximetry was good and post chest x-ray imaging was done. 1 hour in critical care assessed to this patient. 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 Did contact [facility] and spoke with LIBRA Mir in the transfer center. [facility] in [place] are on divert. She is going to see if she can find any capacity for him. [facility] [place] except for Peds trauma. Was able to talk to [facility], spoke with Dr. Lam for 10 minutes starting at 9:07 a.m.. They are going to work on making arrangements to get this patient to an ICU up at [facility]. She agrees that this is Persaud Jorge Luis's. No further steroids and obviously remove offending agent which is likely the Bactrim. She agreed with maintenance fluids and allow him to eat and drink. Vital Signs Vital signs: Initial Vital Signs Temperature 99.7 F H 12/29/22 08:07 Temperature Source Oral 12/29/22 08:07 Pulse Rate 116 H 12/29/22 08:07 Pulse Rhythm Irregular 12/29/22 08:07 Respiratory Rate 32 H 12/29/22 08:07 Blood Pressure 118/65 12/29/22 08:07 Blood Pressure Mean 82 12/29/22 08:07 Blood Pressure Position Supine 12/29/22 08:07 Pulse Oximetry 94 12/29/22 08:07 Oxygen Delivery Method Room Air 12/29/22 08:07 Vital Signs Temperature 99.7 F H 12/29/22 08:07 Pulse Rate 116 H 12/29/22 08:07 Respiratory Rate 32 H 12/29/22 08:07 Blood Pressure 118/65 12/29/22 08:07 Pulse Oximetry 94 12/29/22 08:07 Oxygen Delivery Method Room Air 12/29/22 08:07 Temperature 99.7 F H 12/29/22 08:30 Pulse Rate 106 H 12/29/22 12:25 Respiratory Rate 20 12/29/22 13:03 Blood Pressure 128/65 12/29/22 12:25 Pulse Oximetry 98 12/29/22 12:25 Oxygen Delivery Method Intubated 12/29/22 12:25 Oxygen Flow Rate 4 12/29/22 11:30 Medical Decision Making Lab Data Lab results reviewed: Yes I reviewed the patient's lab results Labs: Lab Results 12/29/22 12/29/22 Range/Units 08:10 11:15 WBC 11.31 H (4.50-11.00) K/uL RBC 4.31 (4.30-5.90) m/uL Hgb 12.8 L (13.5-17.5) gm/dL Hct 38.7 (37.0-53.0) % MCV 90 (80-100) fL MCH 30 (26-34) pg MCHC 33 (32-36) gm/dL RDW Coeff of Mo 13.7 (11.5-15.5) % Plt Count 128 L (140-440) K/uL Neut % (Auto) 93.4 H (42.0-72.0) % Lymph % (Auto) 4.0 L (20-44) % [place] % (Auto) 1.5 (0.0-11.0) % Eos % (Auto) 0.3 (0.0-7.0) % Baso % (Auto) 0.1 (0.0-3.0) % Neut # (Auto) 10.60 H (1.7-7.0) K/uL Lymph # (Auto) 0.50 L (0.90-2.90) K/uL [place] # (Auto) 0.20 (0.00-0.90) K/UL Eos # (Auto) 0.00 (0.00-0.50) K/uL Baso # (Auto) 0.00 (0.00-0.30) K/uL Abs Immat Gran (auto) 0.10 (0.00-0.30) K/uL Imm/Tot Granulo (auto) 0.7 % VBG pH 7.423 (7.32-7.43) VBG pCO2 31 L (40-50) mmHG VBG pO2 52.0 H (25-47) mmHG VBG HCO3 21 (21-28) mmol/L Sodium 128 L (135-149) mmol/L Potassium 4.8 (3.6-5.1) mmol/L Chloride 96 (96-114) mmol/L Carbon Dioxide 20 (20-32) mmol/L BUN 26 (7-30) mg/dL Creatinine 1.2 (0.5-1.5) mg/dL Estimated Creat Clear 55.76 Estimated GFR 63 ml/min Glucose 283 H (60-115) mg/dL Lactate 5.1 H* 1.9 (0.5-1.9) mmol/L Calcium 8.9 (8.4-10.6) mg/dL Total Bilirubin 1.2 (0.1-1.5) mg/dL AST 61 H (12-35) U/L ALT 38 (4-50) U/L Alkaline Phosphatase 70 (40-150) U/L Troponin I < 0.01 L (0.01-0.04) ng/mL C-Reactive Protein 7.5 H (0.5-1.0) mg/dL NT-Pro-B Natriuret Pep 266 pg/mL Total Protein 7.2 (6.0-8.3) g/dL Albumin 4.2 (3.3-5.0) g/dL Procalcitonin 0.95 H (<0.50) ng/mL Imaging Data Chest x-ray: Attestation: I have reviewed the pertinent imaging results. My impression: No definitive pathology from what I can see, await Radiology over-read. Radiologist's impression: Patient: CITLALY LOPEZ Facility:?[facility] Patient ID:?[id number] Site Patient ID:?[id number] Site :?[id number] Study:?XRay Chest 1 VIEW PORTABLE-12/29/2022 8:49:04 AM Ordering Physician:Luzmaria Cruz Final Report: INDICATION: Shortness of breath TECHNIQUE: Chest 1 view COMPARISON: None FINDINGS: Degenerative changes both shoulders. Cardiac silhouette is mildly prominent. No infiltrate or edema. No effusion or pneumothorax. IMPRESSION: No acute findings. Dictated by Jaziel Figueroa MD @ 12/29/2022 9:49:06 AM (Electronic Signature) Post intubation chest x-ray below. Patient: CITLALY LOPEZ Facility:?[facility] Patient ID:?[id number] Site Patient ID:?[id number]. Site :?[id number] Study:?XRay Chest PORTABLE-12/29/2022 11:51:53 AM Ordering Physician:?Cecilio Cruz Final Report: HISTORY: Status post intubation. COMPARISON: Portable chest from today at 0840 hours FINDINGS: A portable erect AP view of the chest was obtained at 1145 hours. During the interval, an endotracheal tube has been placed with its tip in satisfactory position 4 centimeters above the angelika. There is new mild vascular engorgement with new mild interstitial pulmonary edema, suggesting new mild congestive failure. The heart remains normal in size. The mediastinum is normal in appearance. The osseous structures are normal in appearance for the patient`s age. IMPRESSION: Satisfactory positioning of endotracheal tube. Findings suggesting new mild congestive failure. Dictated by Albino Vaca MD @ 12/29/2022 12:52:49 PM (Electronic Signature) ECG Data Attestation: I personally reviewed and interpreted this ECG as follows: (Sinus tachycardia, 125 beats per minute. No ischemia. QT corrected 470 milliseconds.) Critical Care Time Critical Care Time Critical Care Time: Yes Attestation: The patient required my highest level preparedness to intervene emergently and I personally spent this critical care time directly and personally managing the patient. This critical care time included: Obtaining a history; Examining the patient; Pulse oximetry; Ordering and reviewing of studies; Arranging urgent treatment with development of a management plan; Evaluation of patients response to treatment; Frequent reassessment discussions with other providers. This critical care time was performed to assess and manage the high probability of imminent life-threatening deterioration that could result in multiorgan failure. It was exclusive of separate billable procedures and treating other patients and teaching time. 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
--- NOTE | 2022-12-29 08:32 | CRLHL7_ITS ---
For Patients: As a result of the Cures Act, medical imaging exams and procedure reports are released immediately into your electronic medical record. You may view this report before your referring provider. If you have questions, please contact your health care provider. INDICATION: Shortness of breath TECHNIQUE: Chest 1 view COMPARISON: None FINDINGS: Degenerative changes both shoulders. Cardiac silhouette is mildly prominent. No infiltrate or edema. No effusion or pneumothorax. IMPRESSION: No acute findings. Dictated by Jaziel Figueroa MD @ 12/29/2022 9:49:06 AM (Electronically Signed)
[2022-12-29 08:43] LABS: HCO3 VBG 21 mmol/L (21-28); PCO2 VBG 31 mmHG (40-50); pH VBG 7.423 (7.32-7.43)
[2022-12-29 08:44] LABS: Basophils Percent Auto 0.1 % (0.0-3.0); Eosinophils Percent Auto 0.3 % (0.0-7.0); Hematocrit 38.7 % (37.0-53.0); Hemoglobin* 12.8 gm/dL (13.5-17.5); Immature Granulocytes Pct Auto 0.7 %; Mean Corpuscular HGB Conc 33 gm/dL (32-36); Mean Corpuscular Hemoglobin 30 pg (26-34); Mean Corpuscular Volume 90 fL (80-100); Monocytes Percent Auto 1.5 % (0.0-11.0); Neutrophils Percent Auto 93.4 % (42.0-72.0); Platelet Count* 128 K/uL (140-440); RDW Coefficient of Variation % 13.7 % (11.5-15.5); Red Blood Count 4.31 m/uL (4.30-5.90); White Blood Count* 11.31 K/uL (4.50-11.00)
[2022-12-29 08:47] LABS: Lactate* 5.1 mmol/L (0.5-1.9)
[2022-12-29 08:48] LABS: Slide Review Reflex No
[2022-12-29] MEDS: 0.9 % SODIUM CHLORIDE 1000 ml 1,000 ML IV ×2 (09:00→14:35)
[2022-12-29 09:03] LABS: Albumin* 4.2 g/dL (3.3-5.0); Chloride* 96 mmol/L (96-114); Potassium* 4.8 mmol/L (3.6-5.1); Sodium* 128 mmol/L (135-149)
[2022-12-29 09:05] LABS: Creatinine* 1.2 mg/dL (0.5-1.5); Est. Creatinine Clearance* 55.76; Estimated Glomerular Filt Rate 63 ml/min
[2022-12-29 09:06] LABS: Alanine Aminotransferase* 38 U/L (4-50); Alkaline Phosphatase* 70 U/L (40-150); Aspartate Amino Transferase* 61 U/L (12-35); Bilirubin Total* 1.2 mg/dL (0.1-1.5); Blood Urea Nitrogen* 26 mg/dL (7-30); Carbon Dioxide* 20 mmol/L (20-32); Glucose* 283 mg/dL (60-115); Total Protein* 7.2 g/dL (6.0-8.3)
[2022-12-29 09:07] LABS: Calcium* 8.9 mg/dL (8.4-10.6)
[2022-12-29 09:10] LABS: C Reactive Protein* 7.5 mg/dL (0.5-1.0)
[2022-12-29 09:20] LABS: NT Pro B Type NatriureticPept* 266 pg/mL; Troponin I* < 0.01 ng/mL (0.01-0.04)
[2022-12-29 09:22] LABS: Procalcitonin* 0.95 ng/mL (<0.50)
[2022-12-29] MEDS: 0.9 % SODIUM CH + KCL 20 mEq/L 1,000 ML 100 ML IV (10:03)
[2022-12-29 11:19] LABS: Lactate* 1.9 mmol/L (0.5-1.9)
[2022-12-29] MEDS: LIDOCAINE 1% 5 ml (pf) 5 ML VIAL INJECTION (11:30)
[2022-12-29] MEDS: SUCCINYLCHOLINE 20 MG/ML INJ 120 MG IVP (11:30)
[2022-12-29] MEDS: PROPOFOL 10 MG/ML INJ 150 MG IVP (11:30)
--- NOTE | 2022-12-29 11:30 | ED.NURSE ---
Learning Operations Specialist reporting to ED WAREHOUSE FORKLIFT OPERATOR that patient is feeling short of breath. Reassessment of patient with Dr. Bui reveals sloughing to posterior oropharynx. Swelling noted to soft palate. Patient moved to stab 1 for anticipated intubation. Patient's , Emeli, at bedside and updated re: status and plans. Patient had recent oral temp of 99.2. Patient is on cardiac specialist, oximeter, ETCO2. Oxymask at 10lpm applied. RT/anesthesia at bedside for intubation. Pharmacy assisting. Patient intubated with 7.5ETT (22 @ teeth) at 1132 by anesthesia. See eMAR for medication administrations.
[2022-12-29] MEDS: propofoL 1,000 MG/100 ML ML 18.37 MG IVPB (11:35)
[2022-12-29] MEDS: MIDAZOLAM HCL 1 MG/ML inj 2 MG IVP ×4 (11:37→12:26)
[2022-12-29] MEDS: fentaNYL 100 MCG/2 ML inj 25 MCG IVP ×2 (11:39→12:26)
[2022-12-29] MEDS: PROPOFOL 10 MG/ML INJ 100 MG IVP (11:42)
--- NOTE | 2022-12-29 11:42 | P.ANBPRC_ITS ---
[facility] Medical History Opioid use ?F11.90 - Opioid use, unspecified, uncomplicated (ICD-10) DVT (deep venous thrombosis) ?I82.409 - Acute embolism and thrombosis of unspecified deep veins of unspecified lower extremity (ICD-10) Lumbar spinal stenosis ?M48.061 - Spinal stenosis, lumbar region without neurogenic claudication (ICD-10) Depression ?F32.A - Depression, unspecified (ICD-10) Morbid obesity with BMI of 40.0-44.9, adult ?E66.01 - Morbid (severe) obesity due to excess calories (ICD-10) ?Z68.41 - Body mass index [BMI] 40.0-44.9, adult (ICD-10) Hypermetropia ?H52.00 - Hypermetropia, unspecified eye (ICD-10) Prostate cancer ?C61 - Malignant neoplasm of prostate (ICD-10) Type 2 diabetes mellitus without complications ?E11.9 - Type 2 diabetes mellitus without complications (ICD-10) GERD (gastroesophageal reflux disease) ?K21.9 - Gastro-esophageal reflux disease without esophagitis (ICD-10) Left rotator cuff tear ?M75.102 - Unspecified rotator cuff tear or rupture of left shoulder, not specified as traumatic (ICD-10) Left hip pain ?M25.552 - Pain in left hip (ICD-10) Anxiety ?F41.9 - Anxiety disorder, unspecified (ICD-10) Hypertension ?I10 - Essential (primary) hypertension (ICD-10) Surgical History S/P total hip arthroplasty (12/15/22) ?Z96.649 - Presence of unspecified artificial hip joint (ICD-10) History of refractive surgery ?Z98.890 - Other specified postprocedural states (ICD-10) History of prostate surgery ?Z98.890 - Other specified postprocedural states (ICD-10) History of nasal surgery ?Z98.890 - Other specified postprocedural states (ICD-10) H/O knee surgery ?Z98.890 - Other specified postprocedural states (ICD-10) H/O hernia repair ?Z98.890 - Other specified postprocedural states (ICD-10) ?Z87.19 - Personal history of other diseases of the digestive system (ICD-10) H/O esophagogastroduodenoscopy ?Z98.890 - Other specified postprocedural states (ICD-10) Hx of colonoscopy ?Z98.890 - Other specified postprocedural states (ICD-10) S/P cervical spinal fusion ?Z98.1 - Arthrodesis status (ICD-10) S/P rotator cuff repair ?Z98.890 - Other specified postprocedural states (ICD-10) Status post lumbar spinal fusion ?Z98.1 - Arthrodesis status (ICD-10) History of arthroplasty of left knee (08/14/14) ?Z96.652 - Presence of left artificial knee joint (ICD-10) S/P total knee arthroplasty (06/07/15) ?Z96.659 - Presence of unspecified artificial knee joint (ICD-10) Family History Father Pacemaker COPD (chronic obstructive pulmonary disease) Prostate cancer High blood pressure Mother Myocardial infarction Blood clot in vein Cardiovascular disease High cholesterol High blood pressure Brother Prostate cancer Aunt Multiple sclerosis Social History Smoking Status: Never smoker Do you use any of these nicotine containing products: None How often do you have a drink containing alcohol: never AUDIT-C Alcohol total score: 0 Non-prescribed substance use: denies use Caffeine: Yes (coffee, 1-2 cups/day) service: Yes Meds Home Medications and Allergies Home Medications Medication Instructions Recorded Confirmed Type acetaminophen 500 mg tablet 500 mg PO Q6H PRN 11/02/22 12/28/22 History (Tylenol Extra Strength) escitalopram oxalate 20 mg tablet 20 mg PO QAM 11/02/22 12/28/22 History losartan 50 mg-hydrochlorothiazide 1 tab PO DAILY 11/02/22 12/28/22 History 12.5 mg tablet rivaroxaban 20 mg tablet (Xarelto) 20 mg PO QPM 11/02/22 12/28/22 History Allergies Allergy/AdvReac Type Severity Reaction Status Date / Time clarithromycin Allergy Severe hives, Verified 12/28/22 12:56 chest tightness Penicillins Allergy Intermediate hives, Verified 12/28/22 12:56 chest tightness Results Labs Labs: Laboratory Results - last 24 hr 12/29/22 12/29/22 08:10 11:15 WBC 11.31 H RBC 4.31 Hgb 12.8 L Hct 38.7 MCV 90 MCH 30 MCHC 33 RDW Coeff of Mo 13.7 Plt Count 128 L Neut % (Auto) 93.4 H Lymph % (Auto) 4.0 L Loving % (Auto) 1.5 Eos % (Auto) 0.3 Baso % (Auto) 0.1 Neut # (Auto) 10.60 H Lymph # (Auto) 0.50 L Loving # (Auto) 0.20 Eos # (Auto) 0.00 Baso # (Auto) 0.00 Abs Immat Gran (auto) 0.10 Imm/Tot Granulo (auto) 0.7 VBG pH 7.423 VBG pCO2 31 L VBG pO2 52.0 H VBG HCO3 21 Sodium 128 L Potassium 4.8 Chloride 96 Carbon Dioxide 20 BUN 26 Creatinine 1.2 Estimated Creat Clear 55.76 Estimated GFR 63 Glucose 283 H Lactate 5.1 H* 1.9 Calcium 8.9 Total Bilirubin 1.2 AST 61 H ALT 38 Alkaline Phosphatase 70 Troponin I < 0.01 L C-Reactive Protein 7.5 H NT-Pro-B Natriuret Pep 266 Total Protein 7.2 Albumin 4.2 Procalcitonin 0.95 H Vital Signs Vital Signs: Last Vital Signs Temp 99.7 F H 12/29/22 08:30 Pulse 111 H 12/29/22 09:31 Resp 22 12/29/22 09:31 BP 117/59 L 12/29/22 09:31 Pulse Ox 87 L 12/29/22 09:31 O2 Del Method Room Air 12/29/22 09:31 Weight: 122.47 kg Height: 177.8 cm Anesthesia Procedures Airway Patient Location: ED Urgency: emergent Date: 12/29/22 Time: 11:30 [employer]: Katalina Lindsey Other Anesthesia Staff: John Jama Preanesthetic Checklist: IV checked and monitors and equipment checked Difficult Airway: No Indications for Airway Management: airway protection and respiratory distress Spontaneous Ventilation: present Sedation Level: deep Preoxygenated: Yes MILS Maintained Throughout: Yes Mask Difficulty Assessment: 0 - not attempted Final Airway Details: GlideScope size 3, grade I, easy placement of 7.5 ETT. Propofol 150 mg Anectine 120 mg VSS. No complications. Final Airway Type: endotracheal airway Number of Attempts at Approach: 1 Dentition Unchanged: Yes
[2022-12-29] MEDS: KETAMINE HCL 500 MG in 0.9 % SODIUM CHLORIDE 500 ML 500 ML 123.7 MG IVPB (11:58)
--- NOTE | 2022-12-29 12:47 | ED.NURSE ---
Report to LIBRA Andrea ([facility]).
== END 2022-12-29 12:40 | disposition short-term general hospital (02) ==
PROVIDERS: Emergency Provider Family Medicine; PCP Family Medicine
DX: J98.8 Other specified respiratory disorders (principal); L51.1 Stevens-Johnson syndrome
CPT/HCPCS: 31500; 36415; 71045; 80053; 82803; 83605; 83880; 84145; 84484; 85025; 86140; 87040; 93005; 94761; 96365; 96366; 96375; 99285; 99291; J0330; J2250; J2704; J3010; J3490; J7030; J7120

== ENCOUNTER 2022-12-29 11:49 | Outpatient (CLI) | payer MEDICARE, SELFPAY | END 2022-12-29 11:50 | disposition home or self-care (01) | LOC: AMB 12-31 07:03 | PROVIDERS: PCP Family Medicine; Visit Provider Student in an Organized Health Care Education/Training Program | DX: L51.1 Stevens-Johnson syndrome (principal); R06.09 Other forms of dyspnea | CPT/HCPCS: A0425; A0434 ==